=== PATIENT | male | born 2000 | race Caucasian/White ===

== ENCOUNTER 2021-02-24 18:24 | Emergency (ER) | payer SELFPAY ==
[2021-02-24 18:33] VITALS: BP 133/83; BMI 33.5
[2021-02-24 18:34] VITALS: PULSE 118
[2021-02-24] MEDS ORDERED: IBUPROFEN 600 MG TABLET (FP) PO ONE ×2 (21:04→21:30)
[2021-02-24 22:28] VITALS: TEMP 99.5
== END 2021-02-24 23:24 | disposition home or self-care (01) ==
LOC: JERFT 18:24
DX: M25.561 Pain in right knee (principal); Y93.66 Activity, soccer
CPT/HCPCS: 73562-TC-RT-FY; 73590-TC-RT-FY; 99284-25